=== PATIENT | female | born 1975 | race Asian ===

== ENCOUNTER → 2024-10-27 | Emergency (ER) | payer OTHER ==
[~2024-10-27] VITALS: Ht 152.4 cm; Wt 70.5 kg
[~2024-10-27] MED LIST: CARV25 PO; IRBE150T51 PO
[2024-10-27 11:40] VITALS: BP 121/78; PULSE 66; RESP 18; TEMP 98.3; O2SAT 100
== END | disposition home or self-care (01) ==
LOC: EMS 11:36
DX: I10 Essential (primary) hypertension (principal); E78.00 Pure hypercholesterolemia, unspecified; Z76.0 Encounter for issue of repeat prescription
CPT/HCPCS: 99281; Z7502